=== PATIENT | female | born 1980 | race Caucasian/White ===

== ENCOUNTER 2021-08-26 12:37 | Emergency (ER) | payer OTHER ==
--- NOTE | 2021-08-26 15:03 | ED Physician Documentation ---
History of Present Illness - Stated complaint Stated Complaint: BODY RASH - Chief complaint Chief Complaint: Allergic Rx - History obtained from History obtained from: Patient - Additonal information Additional information: She has been eating food w cardamon lately. And she has noticed a pattern over the years the each time she eats food with cardamon, she generally gets worsening allergic reaction. On Thursday developed swollen lips, wheezing, and body wide hives. All these things are improving. Review of Systems Constitutional: reports: Reviewed and negative Eyes: reports: Reviewed and negative Ears: reports: Reviewed and negative Nose: reports: Reviewed and negative PD PAST MEDICAL HISTORY - Past Medical History Past Medical History: Yes - Present Medications Home Medications: Ambulatory Orders Medication Instructions Recorded Confirmed Doxepin [SINEquan] 10 mg PO TID PRN #30 cap 08/26/21 EPINEPHrine [Epinephrine] 0.3 mg IJ ONCE PRN #2 syr 08/26/21 - Allergies Allergies/Adverse Reactions: Allergies Allergy/AdvReac Type Severity Reaction Status Date / Time NSAIDS (Non-Steroidal AdvReac Headache Verified 08/26/21 13:00 Anti-Inflamma - Social History Does the pt smoke?: No Smoking Status: Never smoker Does the pt drink ETOH?: No Does the pt have substance abuse?: No - POLST Patient has POLST: No PD ED PE NORMAL - Vitals Vital signs reviewed: Yes - General General: Alert and oriented X 3 - HEENT HEENT: Other (Body wide hives, no oropharyngeal angioedema, clear lungs) - Respiratory Respiratory: Clear bilaterally - Neuro Neuro: Alert and oriented X 3, Normal speech Results - Vitals Vitals: Vital Signs - 24 hr 08/26/21 12:54 Temperature 36.8 C Heart Rate 94 Respiratory 14 Rate Blood Pressure 128/81 H O2 Saturation 99 Oxygen O2 Source Room air PD MEDICAL DECISION MAKING - ED course ED course: After discussion she declined steroids but would like to switch from Benadryl to doxepin and as needed EpiPen. She requested Covid testing wondering if hives might be a manifestation of Covid. Departure - Departure Disposition: 01 Home, Self Care Clinical Impression: Allergic urticaria Condition: Good Record reviewed to determine appropriate education?: Yes Instructions: ED Allergic Reaction General Other Prescriptions: EPINEPHrine [Epinephrine] 0.3 mg IJ ONCE PRN #2 syr PRN Reason: Allergy Symptoms Doxepin [SINEquan] 10 mg PO TID PRN #30 cap PRN Reason: Itching Comments: Call your doctor to arrange a follow-up appointment, make the next available appointment. In the interim, return anytime if worse or if new symptoms develop. You have a Covid test pending. You need to self quarantine until the result is done and negative. Do not leave your house. Do not get near anybody. The results should be done in 48 to 72 hours. We will call with a positive result, the fastest way to get a negative result for confirmation though is to go to the hospital website at [email or web address], click on the my [facility] tab and sign up for the patient portal. If any friends or family get sick and would like to have a Covid test done, but do not have signs or symptoms that would necessitate being hospitalized, we encourage testing through our coronavirus swabbing station, call [phone] to schedule an appointment.
[2021-08-26 15:12] VITALS: BP 115/78
[2021-08-26] MEDS: DOXEPIN 10 MG CAPSULE PO STA (15:12)
== END 2021-08-26 15:14 | disposition home or self-care (01) ==
LOC: ED 12:37
DX: L50.0 Allergic urticaria (principal); Z20.822 Contact with and (suspected) exposure to COVID-19
CPT/HCPCS: 87635; 99283; A9270

== ENCOUNTER 2021-10-09 22:19 | Emergency (ER) | payer OTHER ==
[2021-10-09 22:27] VITALS: BP 134/88
[2021-10-09] MEDS ORDERED: KETOROLAC 30 MG/ML VIAL IM STA (22:47)
--- NOTE | 2021-10-09 22:48 | ED Physician Documentation ---
History of Present Illness - Stated complaint Stated Complaint: LT SHOULDER PX/POST VACCINE - Chief complaint Chief Complaint: Ext Problem - History obtained from History obtained from: Patient - Additonal information Additional information: 41yF p/w L shoulder pain 6 days s/p moderna booster vaccine. patient states she had initial pain in the shoulder and it has gradually worsened, is constant, a/w subjective swelling in the deltoid area, worse with ROM of the shoulder. denies trauma, prior injury, fever/chills, numbness, weakness. Note that patient states she has an intolerance to some NSAIDs. she has been taking aspirin at home without issue but in the past, she reports that nsaids taken for prolonged periods of times have caused her to become suicidal. Review of Systems Constitutional: denies: Fever Musculoskeletal: reports: Extremity pain, Joint pain PD PAST MEDICAL HISTORY - Present Medications Home Medications: Ambulatory Orders Medication Instructions Recorded Confirmed Doxepin [SINEquan] 10 mg PO TID PRN #30 cap 08/26/21 EPINEPHrine [Epinephrine] 0.3 mg IJ ONCE PRN #2 syr 08/26/21 - Allergies Allergies/Adverse Reactions: Allergies Allergy/AdvReac Type Severity Reaction Status Date / Time NSAIDS (Non-Steroidal AdvReac Headache Verified 10/09/21 22:24 Anti-Inflamma - Social History Does the pt smoke?: No Smoking Status: Never smoker Does the pt drink ETOH?: No Does the pt have substance abuse?: No - POLST Patient has POLST: No PD ED PE NORMAL - Vitals Vital signs reviewed: Yes - General General: Alert and oriented X 3, No acute distress, Well developed/nourished - HEENT HEENT: Atraumatic, PERRL, EOMI - Neck Neck: Supple, no meningeal sign, Other (L trapezius muscle discomfort to palpation) - Extremities Extremities: No deformity, No edema, Other (no visible or palpable swelling to L shoulder or deltoid. discomfort with ROM, but with FROM. 2+ BL radial pulses, sensation, movement) Results - Vitals Vitals: Vital Signs - 24 hr 10/09/21 22:24 Temperature 36.5 C Heart Rate 80 Respiratory 16 Rate Blood Pressure 134/88 H O2 Saturation 99 Oxygen O2 Source Room air PD MEDICAL DECISION MAKING - ED course ED course: 41yF p/w L shoulder pain s/p vaccine 6 days ago. FROM of the shoulder. patient has pain in trapezius muscle and deltoid therefore toradol was administered after shared decision making with patient. return precautions and symptom care discussed. plan to f/u with pmd. Departure - Departure Disposition: 01 Home, Self Care Clinical Impression: Shoulder pain Condition: Good Instructions: ED RICE Comments: You were seen in the emergency department for shoulder pain. Your xrays showed no acute findings, except for mild degenerative changes that may be the beginnings of osteoarthritis. Please follow up with your primary doctor. return to the ED if you have new or worsening symptoms or other concerns.
--- NOTE | 2021-10-09 23:09 | XRAY Report ---
PROCEDURE: Shoulder 2 View LT INDICATIONS: L shoulder pain s/p vaccine TECHNIQUE: 2 views of the shoulder were acquired. COMPARISON: None. FINDINGS: Bones: No acute fractures or dislocations. No suspicious bony lesions. Visualized ribs appear inta ct. Mild degenerative changes of the left acromioclavicular joint. Soft tissues: Focal soft tissue calcification overlying the left acromioclavicular joint likely [place] of chronic degenerative changes of the left acromioclavicular joint. IMPRESSION: Left shoulder without acute fracture or malalignment. Reviewed by: Akin Rosado MD on 10/09/2021 11:07 PM PST Approved by: Akin Rosado MD on 10/09/2021 11:07 PM PST Station ID: [id number]
== END 2021-10-09 23:23 | disposition home or self-care (01) ==
LOC: ED 22:19
DX: M25.512 Pain in left shoulder (principal)
CPT/HCPCS: 96372; 99283